=== PATIENT | male | born 2000 ===

== ENCOUNTER 2023-10-25 12:54 | Emergency (ER) | payer SELFPAY ==
[~2023-10-25] VITALS: Ht 172.7 cm; Wt 88.0 kg
[2023-10-25 12:58] VITALS: BP 128/69; PULSE 60; RESP 16; TEMP 98.3
== END 2023-10-25 15:51 | disposition left against medical advice (07) ==
LOC: EMS 12:54
DX: K08.89 Other specified disorders of teeth and supporting structures (principal); Z53.21 Procedure and treatment not carried out due to patient leaving prior to being seen by health care provider